=== PATIENT | male | born 1965 | race Caucasian/White ===

== ENCOUNTER 2016-10-30 12:56 | Emergency (ER) | payer MEDICAID ==
[~2016-10-30] VITALS: Wt 92.0 kg
[2016-10-30] MEDS ORDERED: SULF1TAB31 PO (14:41)
[2016-10-30] MEDS ORDERED: MUPI22OI2 TOP (14:41)
[2016-10-30] MEDS ORDERED: HYDR-906 PO (14:41)
[2016-10-30] MEDS ORDERED: IBUP800T25 PO (14:41)
[2016-10-30] MEDS ORDERED: CEPH-443 PO (14:41)
--- NOTE | 2016-10-30 14:54 | ERD ---
ER Documentation Chief Complaint Date/Time DATE: 10/30/16 TIME: 14:42 Chief Complaint abscess multiple areas for the past few wks. no fevers. no n/v HPI Patient is a pleasant 51-year-old male who presents with multiple areas of localized swelling and redness. He has 2 localized areas on his right anterior knee and he states he has also been having some pus come from his bellybutton. He has been applying warm compresses and had pus come out of it. He has some pain which she has been taking aspirin however it is not relieving his symptoms. Denies fever. ROS All systems reviewed and are negative except as per history of present illness. Medications Home Meds Active Scripts Hydrocodone/Acetaminophen ([place] 5-325 Tablet) 1 Each Tablet, 1 TAB PO Q6H Y for PAIN, #15 TAB Prov:CHRISTINE SHAH PA-C 10/30/16 Cephalexin* (Keflex*) 500 Mg Capsule, 500 MG PO QID for 7 Days, CAP Prov:CHRISTINE SHAH PA-C 10/30/16 Ibuprofen* (Motrin*) 800 Mg Tab, 800 MG PO Q6, #30 TAB Prov:CHRISTINE SHAH PA-C 10/30/16 Mupirocin* (Bactroban*) 2% -22 Gram Oint...g., 1 APPLIC TOP BID for 7 Days, EA Prov:CHRISTINE SHAH PA-C 10/30/16 Sulfamethoxazole/Trimethoprim* (Bactrim Ds* Tablet) 1 Each Tablet, 1 TAB PO BID , #14 TAB Prov:CHRISTINE SHAH PA-C 10/30/16 FmHx Family History: No diabetes Physical Exam Vitals Vital Signs Date Time Temp Pulse Resp B/P Pulse Ox O2 Delivery O2 Flow Rate FiO2 10/30/16 13:14 98.5 87 14 144/90 95 Physical Exam General: well developed, well nourished, alert, nontoxic, no distress Head: normocephalic, atraumatic Respiratory: Clear to auscaultation bilaterally, speaks in full sentences, no use of accesory muscles or labored breathing, no rales, ronchi, or wheezing Cardiovascular: RRR, No murmurs GI: soft, non tender, non distended, negative murphys sign, negative mcburneys point tenderness, no cva tenderness bilaterally, no rebound or guarding, bellybutton has scant purulent drainage Back: no midline tenderness, no step offs or bony abnormalities, sensation to light touch in tact Extremities: Right anterior knee has 2 areas of localized erythema approximately 2-3 cm in length, no active bleeding or drainage, no fluctuance. Procedures/MDM Patient has a couple areas of localized cellulitis. There is no indication for incision and drainage at this time. He is well-appearing afebrile in no distress. He has been taking aspirin to help control his pain but he continues to have pain. Today he was discharged with Bactrim, Keflex, Bactroban, ibuprofen, and a small amount of [place]. Recommended this patient follow up with her primary care doctor within 48 hours or return to the emergency room for any worsening of symptoms. However this time I do believe there is suitable for outpatient management. I answered all their questions and they agreed with the plan and were discharged home. Departure Diagnosis: Primary Impression: Cellulitis Condition: Stable Patient Instructions: Cellulitis Additional Instructions: Call your primary care doctor TOMORROW for an appointment during the next 1-2 days.See the doctor sooner or return here if your condition worsens before your appointment time. CHRISTINE SHAH PA-C Oct 30, 2016 14:53
== END 2016-10-30 15:23 | disposition home or self-care (01) ==
LOC: FTE 12:56
DX: L03.115 Cellulitis of right lower limb (principal)
CPT/HCPCS: 99284